=== PATIENT | male | born 1970 | race Asian ===

== ENCOUNTER 2017-10-24 01:26 | Emergency (ER) | payer OTHER ==
[~2017-10-24] VITALS: Ht 170.2 cm; Wt 65.8 kg
[~2017-10-24 01:26] MED LIST: AMOXICILLIN500 MG ORAL; BACITRACIN15 GM TOPIC; CYCLOBENZAPRINE10 MG ORAL; IBUPROFEN600 MG ORAL; NKM; NORCO 5-325 TA1 EACH ORAL; VALACYCLOVIR1000 MG ORAL; VALIUM5 MG PO; ZITHROMAX250 MG ORAL
--- NOTE | 2017-10-24 01:49 | Emergency Room Report ---
History of Present Illness General Chief Complaint: Palpitations Source: Patient, Medical Record Present Illness HPI 47-year-old male, history of alcohol abuse, presenting with chest pressure. Patient states that he has been drinking a lot, states that his mother just of pancreatic cancer 2 days ago, states that he isn't drinking a lot more than usual. Just a little chest pressure. States that he feels like he had a " heart attack a few weeks ag". States that he did not go to the hospital or do anything about it. Denies using any other illegal drugs Allergies: Coded Allergies: No Known Allergies (Unverified , 11/22/12) Patient History Past Medical History: see triage record Past Surgical History: none Pertinent Family History: none Reviewed Nursing Documentation: PMH: Agreed; PSxH: Agreed Nursing Documentation-PMH Past Medical History: No History, Except For Hx Cardiac Problems: No - TB in 1990, Herpes Review of Systems All Other Systems: negative except mentioned in HPI Physical Exam Vital Signs Date Time Temp Pulse Resp B/P (MAP) Pulse Ox O2 Delivery O2 Flow Rate FiO2 10/24/17 01:32 97.9 73 16 116/83 99 Room Air 97.9 Sp02 EP Interpretation: reviewed, normal General Appearance: other - Intoxicated, anxious, but not in pain Head: normocephalic, atraumatic Eyes: bilateral eye normal inspection, bilateral eye PERRL, bilateral eye EOMI ENT: normal ENT inspection, normal pharynx, normal voice, moist mucus membranes Neck: normal inspection, full range of motion, supple Respiratory: normal inspection, lungs clear, normal breath sounds, no respiratory distress, no retraction, no wheezing, speaking full sentences, chest symmetrical Cardiovascular #1: normal inspection, regular rate, rhythm, no edema, normal capillary refill Cardiovascular #2: 2+ radial (R), 2+ radial (L) Gastrointestinal: normal inspection, non tender, soft, non-distended, no guarding Genitourinary: no CVA tenderness Musculoskeletal: normal inspection, back normal, normal range of motion, non- tender Neurologic: normal inspection, alert, oriented x3, responsive, motor strength/ tone normal, sensory intact, normal gait, speech normal Psychiatric: depressed affect, anxious, other Skin: normal inspection, normal color, no rash, warm/dry, well hydrated, normal turgor Medical Decision Making Diagnostic Impression: Primary Impression: Alcohol intoxication ER Course 47-year-old male, history of alcohol abuse, presenting with chest pain DDX: Alcohol intoxication Less likely, ACS vs. CHF vs. pneumonia vs. gastritis/GERD vs. pneumothorax No suicidal ideation Plan: IV access, obtain labs including troponin, EKG, CXR Alcohol and toxicology labs ER course: pt has been sleeping comfortably throughout the night now clinically sober DC home Disposition: Patient will be discharged to home. Strict precautions discussed with patient on when to emergently return to the ED : this includes worsening/severe chest pain, palpitations, shortness of breath, syncopal episodes, fever or chills, which may indicate severe illness. Patient verbalized understanding. Patient instructed to follow up with their PMD within the next 2 days. Patient also instructed to follow up with a generator operator straight bevel gear within 2 days for possible outpatient stress test. Patient agrees with plan. Please note that this Emergency Department Report was dictated using [employer] specialist technology software, occasionally this can lead to erroneous entry secondary to interpretation by the dictation equipment. EKG Diagnostic Results EP Interpretation: Yes Rate: normal Rhythm: NSR ST Segments: No acute changes ASA given to patient: no Rhythm Strip EP Interpretation: Yes Rate: 74 Rhythm: NSR, no PVCs, no ectopy Chest X-ray CXR: Ordered: Yes 1 view Indication: Chest pain EP interpretation: Yes Interpretation: No consolidation, no effusion, no PTX, no acute cardiopulmonary disease Impression: No acute disease Electronically signed by Trav Licona MD Laboratory Tests Test 10/24/17 01:52 10/24/17 03:14 White Blood Count 6.8 K/UL (4.8-10.8) Red Blood Count 3.82 M/UL (4.70-6.10) L Hemoglobin 13.8 G/DL (14.2-18.0) L Hematocrit 38.7 % (42.0-52.0) L Mean Corpuscular Volume 101 FL (80-99) H Mean Corpuscular Hemoglobin 36.1 PG (27.0-31.0) H Mean Corpuscular Hemoglobin Concent 35.6 G/DL (32.0-36.0) Red Cell Distribution Width 11.1 % (11.6-14.8) L Platelet Count 186 K/UL (150-450) Mean Platelet Volume 7.2 FL (6.5-10.1) Neutrophils (%) (Auto) 47.4 % (45.0-75.0) Lymphocytes (%) (Auto) 33.5 % (20.0-45.0) Monocytes (%) (Auto) 13.2 % (1.0-10.0) H Eosinophils (%) (Auto) 4.7 % (0.0-3.0) H Basophils (%) (Auto) 1.2 % (0.0-2.0) Sodium Level 141 MMOL/L (136-145) Potassium Level 3.4 MMOL/L (3.5-5.1) L Chloride Level 106 MMOL/L (98-107) Carbon Dioxide Level 27 MMOL/L (21-32) Anion Gap 8 mmol/L (5-15) Blood Urea Nitrogen 18 mg/dL (7-18) Creatinine 0.9 MG/DL (0.55-1.30) Estimate Glomerular Filtration Rate > 60 mL/min (>60) Glucose Level 89 MG/DL (74-106) Calcium Level 8.7 MG/DL (8.5-10.1) Total Bilirubin 0.4 MG/DL (0.2-1.0) Aspartate Amino Transferase (AST) 63 U/L (15-37) H Alanine Aminotransferase (ALT) 47 U/L (12-78) Alkaline Phosphatase 51 U/L (46-116) Troponin I 0.000 ng/mL (0.000-0.056) Total Protein 6.7 G/DL (6.4-8.2) Albumin 3.5 G/DL (3.4-5.0) Globulin 3.2 g/dL Albumin/Globulin Ratio 1.1 (1.0-2.7) Serum Alcohol 283 mg/dL Urine Color Pale yellow Urine Appearance Clear Urine pH 6 (4.5-8.0) Urine Specific [place] 1.010 (1.005-1.035) Urine Protein Negative (NEGATIVE) Urine Glucose (UA) Negative (NEGATIVE) Urine Ketones Negative (NEGATIVE) Urine Occult Blood Negative (NEGATIVE) Urine Nitrite Negative (NEGATIVE) Urine Bilirubin Negative (NEGATIVE) Urine Urobilinogen Normal MG/DL (0.0-1.0) Urine Leukocyte Esterase Negative (NEGATIVE) Urine Opiates Screen Negative (NEGATIVE) Urine Barbiturates Screen Negative (NEGATIVE) Phencyclidine (PCP) Screen Negative (NEGATIVE) Urine Amphetamines Screen Negative (NEGATIVE) Urine Benzodiazepines Screen Negative (NEGATIVE) Urine Cocaine Screen Negative (NEGATIVE) Urine Marijuana (THC) Screen Negative (NEGATIVE) Last Vital Signs Date Time Temp Pulse Resp B/P (MAP) Pulse Ox O2 Delivery O2 Flow Rate FiO2 10/24/17 01:32 97.9 73 16 116/83 99 Room Air 97.9 Disposition: HOME, SELF-CARE Condition: Improved Referrals: [facility] (PCP) Trav Licona M.D. Oct 24, 2017 01:49
[2017-10-24 01:54] VITALS: BP 115/89
[2017-10-24 02:13] LABS: BASOPHILS % (AUTO) 1.2 % (0.0-2.0); EOSINOPHILS % (AUTO) 4.7 % (0.0-3.0); HEMATOCRIT 38.7 % (42.0-52.0); HEMOGLOBIN 13.8 G/DL (14.2-18.0); LYMPHOCYTES % (AUTO) 33.5 % (20.0-45.0); MEAN CORPUSCULAR VOLUME 101 FL (80-99); MONOCYTES % (AUTO) 13.2 % (1.0-10.0); NEUTROPHILS % (AUTO) 47.4 % (45.0-75.0); PLATELET COUNT 186 K/UL (150-450); RED BLOOD COUNT 3.82 M/UL (4.70-6.10); RED CELL DISTRIBUTION WIDTH 11.1 % (11.6-14.8); WHITE BLOOD COUNT 6.8 K/UL (4.8-10.8)
[2017-10-24 02:31] LABS: ANION GAP 8 mmol/L (5-15); BLOOD UREA NITROGEN 18 mg/dL (7-18); CALCIUM 8.7 MG/DL (8.5-10.1); CARBON DIOXIDE 27 MMOL/L (21-32); CHLORIDE 106 MMOL/L (98-107); CREATININE 0.9 MG/DL (0.55-1.30); POTASSIUM 3.4 MMOL/L (3.5-5.1); SODIUM 141 MMOL/L (136-145)
[2017-10-24 02:35] LABS: ALANINE AMINOTRANSFERASE 47 U/L (12-78); ALBUMIN 3.5 G/DL (3.4-5.0); ALBUMIN/GLOBULIN RATIO 1.1 (1.0-2.7); ALKALINE PHOSPHATASE 51 U/L (46-116); ASPARTATE AMINO TRANSFERASE 63 U/L (15-37); BILIRUBIN,TOTAL 0.4 MG/DL (0.2-1.0)
[2017-10-24 03:27] LABS: APPEARANCE,URINE CLEAR; BILIRUBIN, URINE NEGATIVE (NEGATIVE); COLOR,URINE PALE YELLOW; GLUCOSE, URINE (UA) NEGATIVE (NEGATIVE); KETONES,URINE NEGATIVE (NEGATIVE); LEUKOCYTE ESTERASE ,URINE NEGATIVE (NEGATIVE); NITRITE,URINE NEGATIVE (NEGATIVE); PH,URINE 6 (4.5-8.0); PROTEIN,URINE NEGATIVE (NEGATIVE); UROBILINOGEN,URINE NORMAL MG/DL (0.0-1.0)
[2017-10-24 03:40] VITALS: BP 105/75
[2017-10-24 06:23] VITALS: BP 101/70
[2017-10-24 08:38] VITALS: BP 98/77
--- NOTE | 2017-10-24 09:20 | Diagnostic Imaging Report ---
Indication: Chest pain Technique: One view of the chest Comparison: none Findings: Lungs and pleural spaces are clear. Heart size is normal Impression: No acute process
--- NOTE | 2017-10-24 21:40 | Cardiology Report ---
APPROVED REPORT EKG Measurement Heart [id number] Normal sinus rhythm Normal ECG
== END 2017-10-24 08:39 | disposition home or self-care (01) ==
LOC: EMR 01:43
DX: R07.9 Chest pain, unspecified (principal); F10.129 Alcohol abuse with intoxication, unspecified; Y90.8 Blood alcohol level of 240 mg/100 ml or more
CPT/HCPCS: 36415; 71045; 80053; 80307; 80329; 81003; 84484; 85025; 93005; 96374; 99284

== ENCOUNTER 2018-02-20 22:08 | Emergency (ER) | payer OTHER ==
[~2018-02-20] VITALS: Ht 170.2 cm; Wt 66.2 kg
[2018-02-20 22:30] VITALS: BP 122/77
--- NOTE | 2018-02-20 22:38 | Emergency Room Report ---
History of Present Illness General Chief Complaint: Abdominal Pain Source: Patient Present Illness HPI Patient with diarrhea for 2 days. Brown, multiple BMs during the day making it hard for him to work. No fevers or chills. Denies vomiting or nausea. Some abdominal cramping but denies pain at this time. Took immodium and pepto without help. No dysuria. No blood in stool. Feels slightly week due to amount of diarrhea and decrease in eating. No recent travel, unusual foods. He states this happened to him before and a stool swab indicated he had an infection. It was treated with Cipro with improvement. He wants this at this time. H/O alcohol abuse in past. No fam h/o inflammatory bowel disease. Allergies: Coded Allergies: No Known Allergies (Unverified , 11/22/12) Patient History Past Medical History: see triage record Pertinent Family History: other - pancreatic cancer Social History: Reports: smoking; Denies: alcohol use, drug use Social History Narrative working Reviewed Nursing Documentation: PMH: Agreed; PSxH: Agreed Nursing Documentation-PMH Hx Cardiac Problems: No - TB in 1990, Herpes Review of Systems All Other Systems: negative except mentioned in HPI Physical Exam Vital Signs Date Time Temp Pulse Resp B/P (MAP) Pulse Ox O2 Delivery O2 Flow Rate FiO2 02/20/18 22:20 98.3 90 18 127/70 98 Room Air 98.2 Sp02 EP Interpretation: reviewed, normal General Appearance: well appearing, no apparent distress, GCS 15 Head: normocephalic, atraumatic Eyes: bilateral eye normal inspection, bilateral eye PERRL ENT: hearing grossly normal, normal voice, moist mucus membranes Neck: full range of motion, supple Respiratory: lungs clear, no respiratory distress, speaking full sentences Cardiovascular #1: regular rate, rhythm Cardiovascular #2: 2+ radial (L) Gastrointestinal: normal bowel sounds, non tender, soft, scaphoid Musculoskeletal: digits/nails normal, gait/station normal, normal range of motion Neurologic: alert, normal gait, grossly normal Psychiatric: mood/affect normal Skin: no rash Medical Decision Making Diagnostic Impression: Primary Impression: Diarrhea Qualified Codes: R19.7 - Diarrhea, unspecified ER Course Patient presents with diarrhea. DDx: GItis, infectious - viral vs bacterial, inflammatory bowel disease, food poisoning amongst others. Patient not toxic. He is insisting on treatment with Ciprofloxin. I discussed need for further evaluation but he only wants antibiotics. He agreed that if he is not better he would return. Patient stable for outpatient observation and treatment. Last Vital Signs Date Time Temp Pulse Resp B/P (MAP) Pulse Ox O2 Delivery O2 Flow Rate FiO2 02/20/18 23:02 98.2 77 18 122/77 98 Room Air 98.2 Status: improved Disposition: HOME, SELF-CARE Condition: Improved Scripts Diphenoxylate Hcl/Atropine (LOMOTIL TABLET) 1 Each Tablet 1 TAB ORAL BID, #4 TAB 0 Refills Prov: Inocente Dupree M.D. 02/20/18 Ciprofloxacin Hcl* (CIPROFLOXACIN HCL*) 500 Mg Tablet 500 MG ORAL Q12H, #10 TAB 0 Refills Prov: Inocente Dupree M.D. 02/20/18 Inocente Dupree M.D. Feb 20, 2018 22:38
[2018-02-20] MEDS ORDERED: LOMOTIL TABLET1 EACH ORAL (22:40)
[2018-02-20] MEDS ORDERED: CIPROFLOXACIN500 M2 ORAL (22:40)
[2018-02-20] MEDS ORDERED: Ciprofloxacin 500mg tab ORAL ONE (22:45)
[2018-02-20 23:02] VITALS: BP 122/77
== END 2018-02-20 23:02 | disposition home or self-care (01) ==
LOC: EMR 22:42
DX: R19.7 Diarrhea, unspecified (principal)
CPT/HCPCS: 99283

== ENCOUNTER 2018-04-16 22:59 | Emergency (ER) | payer OTHER ==
[~2018-04-16] VITALS: Ht 167.6 cm; Wt 67.1 kg
[~2018-04-16 22:59] MED LIST changes: +CIPROFLOXACIN500 M2 ORAL; +LOMOTIL TABLET1 EACH ORAL
[2018-04-16 23:07] VITALS: BP 113/59
--- NOTE | 2018-04-16 23:22 | Emergency Room Report ---
History of Present Illness General Chief Complaint: Gastrointestinal Illness Source: Patient Present Illness HPI Patient presents with complaints of multiple episodes of loose stools at times they have been more bulky however patient had several more episodes of brown watery diarrhea Denies any pain Denies any vomiting Denies any chest pain or shortness of breath He felt that there was some green discoloration previously which has resolved Denies any blood in the stool Denies any recent travel Denies any recent antibiotics Allergies: Coded Allergies: No Known Allergies (Unverified , 11/22/12) Patient History Past Medical History: see triage record Pertinent Family History: none Reviewed Nursing Documentation: PMH: Agreed; PSxH: Agreed Nursing Documentation-PMH Past Medical History: No History, Except For Hx Cardiac Problems: No - TB in 1990, Herpes Review of Systems All Other Systems: negative except mentioned in HPI Physical Exam Vital Signs Date Time Temp Pulse Resp B/P (MAP) Pulse Ox O2 Delivery O2 Flow Rate FiO2 04/16/18 23:03 98.8 115 16 106/79 94 Room Air 98.8 Sp02 EP Interpretation: reviewed, normal General Appearance: well appearing, no apparent distress Head: normocephalic, atraumatic Eyes: bilateral eye PERRL, bilateral eye EOMI ENT: hearing grossly normal, normal pharynx, TMs + canals normal, uvula midline Neck: full range of motion, supple, no meningismus, no bony tend Respiratory: lungs clear, normal breath sounds, no rhonchi, no respiratory distress, no retraction, no accessory muscle use Cardiovascular #1: normal peripheral pulses, regular rate, rhythm, no edema, no gallop, no JVD, no murmur Gastrointestinal: normal bowel sounds, non tender, soft, no mass, no organomegaly, non-distended, no guarding, no hernia, no pulsatile mass, no rebound Genitourinary: no CVA tenderness Musculoskeletal: normal inspection Neurologic: oriented x3, responsive, home health nurse III-XII nml as tested, motor strength/ tone normal, sensory intact Psychiatric: mood/affect normal Skin: normal color, no rash, warm/dry, palpation normal Lymphatic: normal inspection, no adenopathy Medical Decision Making Diagnostic Impression: Primary Impression: Diarrhea ER Course With the history exam and presentation, multiple differentials considered, including but not limited to appendicitis, gastritis, cholecystitis, diverticulitis Patient however does not have any abdominal pain Essentially having concern regarding the watery stool Baseline blood work is appropriate Patient is a candidate for close GI outpatient follow-up with possible colonoscopy Patient asking multiple different consideration such as cancer, pancreatitis other pathology And at this time was recommended that the outpatient follow-up would be most appropriate Patient was also placed on low antibiotics for consideration of bacterial enteritis Labs Test 04/16/18 23:20 White Blood Count 5.9 K/UL (4.8-10.8) Red Blood Count 4.35 M/UL (4.70-6.10) Hemoglobin 15.6 G/DL (14.2-18.0) Hematocrit 43.3 % (42.0-52.0) Mean Corpuscular Volume 100 FL (80-99) Mean Corpuscular Hemoglobin 35.9 PG (27.0-31.0) Mean Corpuscular Hemoglobin Concent 36.1 G/DL (32.0-36.0) Red Cell Distribution Width 10.6 % (11.6-14.8) Platelet Count 272 K/UL (150-450) Mean Platelet Volume 5.6 FL (6.5-10.1) Neutrophils (%) (Auto) 58.0 % (45.0-75.0) Lymphocytes (%) (Auto) 25.8 % (20.0-45.0) Monocytes (%) (Auto) 7.5 % (1.0-10.0) Eosinophils (%) (Auto) 6.8 % (0.0-3.0) Basophils (%) (Auto) 1.8 % (0.0-2.0) Sodium Level 144 MMOL/L (136-145) Potassium Level 3.8 MMOL/L (3.5-5.1) Chloride Level 108 MMOL/L (98-107) Carbon Dioxide Level 25 MMOL/L (21-32) Anion Gap 12 mmol/L (5-15) Blood Urea Nitrogen 12 mg/dL (7-18) Creatinine 0.9 MG/DL (0.55-1.30) Estimat Glomerular Filtration Rate > 60 mL/min (>60) Glucose Level 97 MG/DL (74-106) Calcium Level 8.5 MG/DL (8.5-10.1) Total Bilirubin 1.4 MG/DL (0.2-1.0) Direct Bilirubin 0.2 MG/DL (0.0-0.3) Aspartate Amino Transf (AST/SGOT) 33 U/L (15-37) Alanine Aminotransferase (ALT/SGPT) 37 U/L (12-78) Alkaline Phosphatase 63 U/L (46-116) Total Protein 7.1 G/DL (6.4-8.2) Albumin 3.6 G/DL (3.4-5.0) Globulin 3.5 g/dL Albumin/Globulin Ratio 1.0 (1.0-2.7) Lipase 227 U/L (73-393) Serum Alcohol 154 mg/dL Last Vital Signs Date Time Temp Pulse Resp B/P (MAP) Pulse Ox O2 Delivery O2 Flow Rate FiO2 04/16/18 23:03 98.8 115 16 106/79 94 Room Air 98.8 Status: improved Disposition: HOME, SELF-CARE Condition: Improved Scripts Ciprofloxacin Hcl* (CIPROFLOXACIN HCL*) 500 Mg Tablet 500 MG ORAL Q12H, #10 TAB 0 Refills Prov: Joshua Blackman DO 04/17/18 Referrals: [facility] (PCP) Additional Instructions: Patient is provided with the discharge instructions notified to follow up with primary doctor in the next 2-3 days otherwise return to the er with any worsening symptoms. Please note that this report is being documented using [employer] technology. This can lead to erroneous entry secondary to incorrect interpretation by the dictating instrument. Joshua Blackman DO Apr 16, 2018 23:22
[2018-04-16 23:42] LABS: BASOPHILS % (AUTO) 1.8 % (0.0-2.0); EOSINOPHILS % (AUTO) 6.8 % (0.0-3.0); HEMATOCRIT 43.3 % (42.0-52.0); HEMOGLOBIN 15.6 G/DL (14.2-18.0); LYMPHOCYTES % (AUTO) 25.8 % (20.0-45.0); MEAN CORPUSCULAR VOLUME 100 FL (80-99); MONOCYTES % (AUTO) 7.5 % (1.0-10.0); PLATELET COUNT 272 K/UL (150-450); RED BLOOD COUNT 4.35 M/UL (4.70-6.10); RED CELL DISTRIBUTION WIDTH 10.6 % (11.6-14.8); WHITE BLOOD COUNT 5.9 K/UL (4.8-10.8)
[2018-04-16 23:51] LABS: ANION GAP 12 mmol/L (5-15); BLOOD UREA NITROGEN 12 mg/dL (7-18); CALCIUM 8.5 MG/DL (8.5-10.1); CARBON DIOXIDE 25 MMOL/L (21-32); CHLORIDE 108 MMOL/L (98-107); CREATININE 0.9 MG/DL (0.55-1.30); POTASSIUM 3.8 MMOL/L (3.5-5.1); SODIUM 144 MMOL/L (136-145)
[2018-04-17 00:01] LABS: ALANINE AMINOTRANSFERASE 37 U/L (12-78); ALBUMIN 3.6 G/DL (3.4-5.0); ALKALINE PHOSPHATASE 63 U/L (46-116); ASPARTATE AMINO TRANSFERASE 33 U/L (15-37); BILIRUBIN,TOTAL 1.4 MG/DL (0.2-1.0)
[2018-04-17 00:04] LABS: BILIRUBIN,DIRECT 0.2 MG/DL (0.0-0.3)
[2018-04-17] MEDS ORDERED: CIPROFLOXACIN500 M2 ORAL (00:48)
[2018-04-17 01:08] VITALS: BP 113/59
== END 2018-04-17 01:12 | disposition home or self-care (01) ==
LOC: EMR 23:19
DX: R19.7 Diarrhea, unspecified (principal)
CPT/HCPCS: 36415; 80053; 80329; 82248; 83690; 85025; 96360; 99284

== ENCOUNTER 2020-08-28 23:09 | Emergency (ER) | payer OTHER ==
[~2020-08-28] VITALS: Ht 170.2 cm; Wt 65.8 kg
--- NOTE | 2020-08-28 23:25 | Emergency Room Report ---
History of Present Illness General Chief Complaint: Alcohol Intoxication Source: Patient Present Illness HPI This is a 50-year-old male who has history of alcohol use. He presents with chief complaint of fall/collapse. He said he had recent retinal detachment surgery and just finished his therapy for it. He said he was celebrating with a couple vodka and orange juice. He said he was walking often he said he felt very weak and fell to the ground. He did not pass out. He was cognizant. He just weak and couldn't get up for several minutes. He is better now appears back to baseline. No other focal deficit. No slurred speech. Denies any fever chills but denies any nausea vomiting or diarrhea. Allergies: Coded Allergies: No Known Allergies (Unverified , 11/22/12) COVID-19 Screening Contact w/high risk pt: No Experienced COVID-19 symptoms?: No COVID-19 Testing performed SUPERVISOR SHIPPING ROOM: No Patient History Past Medical History: see triage record, old chart reviewed Past Surgical History: other Pertinent Family History: none Social History: Denies: smoking Immunizations: other Reviewed Nursing Documentation: PMH: Agreed; PSxH: Agreed Nursing Documentation-PMH Hx Cardiac Problems: No - TB in 1990, Herpes Review of Systems Eye: Denies: eye pain, blurred vision ENT: Denies: ear pain, nose congestion, throat swelling Respiratory: Denies: cough, shortness of breath Cardiovascular: Denies: chest pain, palpitations Gastrointestinal: Denies: abdominal pain, diarrhea, nausea, vomiting Musculoskeletal: Denies: back pain, joint pain Skin: Denies: rash Neurological: Denies: headache, numbness Endocrine: Denies: increased thirst, increased urine Hematologic/Lymphatic: Denies: easy bruising All Other Systems: negative except mentioned in HPI Physical Exam Vital Signs Date Time Temp Pulse Resp B/P (MAP) Pulse Ox O2 Delivery O2 Flow Rate FiO2 08/28/20 23:15 98.4 67 16 230/88 (135) 100 Room Air Vitals with high blood pressure Sp02 EP Interpretation: reviewed, normal General Appearance: well appearing, no apparent distress, alert Head: normocephalic, atraumatic Eyes: bilateral eye PERRL, bilateral eye EOMI ENT: hearing grossly normal, normal pharynx Neck: full range of motion, supple, no meningismus Respiratory: chest non-tender, lungs clear, normal breath sounds Cardiovascular #1: regular rate, rhythm, no murmur Gastrointestinal: normal bowel sounds, non tender, no mass, no organomegaly, no bruit, non-distended Musculoskeletal: back normal, normal range of motion, gait/station normal Psychiatric: mood/affect normal Medical Decision Making Diagnostic Impression: Primary Impression: Acute alcoholic intoxication Qualified Codes: F10.920 - Alcohol use, unspecified with intoxication, uncomplicated Additional Impression: Fall Qualified Codes: W19.XXXA - Unspecified fall, initial encounter ER Course This patient presents with a fall. Probably because he was very intoxicated. He claims he only had one drink to celebrate his discharge from physical therapy for retinal detachment surgery. Obviously was a large drink of vodka. He has been talking nonstop on the phone with his friend. Initially he refused a CT scan but now agreed to get a CT scan. I see no focal deficit to indicate TIA or CVA. There is no evidence of any bleed. CT/MRI/US Diagnostic Results CT/MRI/US Diagnostic Results : Imaging Test Ordered: CT head Impression Read by radiologist. Negative. Last Vital Signs Date Time Temp Pulse Resp B/P (MAP) Pulse Ox O2 Delivery O2 Flow Rate FiO2 08/28/20 23:15 98.4 67 16 230/88 (135) 100 Room Air Status: improved Disposition: HOME, SELF-CARE Condition: Stable Referrals: [facility] (PCP) Patient Instructions: Alcohol Intoxication, [id number] Additional Instructions: Abstain from drinking to excess. Follow-up with your doctor in 7 days. Return if worse. Mark Sanford MD Aug 28, 2020 23:25
--- NOTE | 2020-08-28 23:30 | NUR ---
ED Nurse Note: Patient was BIBA, patient reports that he was standing, his legs gave out and fell. Denies pain or discomfort.
[2020-08-28 23:58] LABS: APPEARANCE,URINE CLEAR; BILIRUBIN, URINE NEGATIVE (NEGATIVE); COLOR,URINE PALE YELLOW; GLUCOSE, URINE (UA) NEGATIVE (NEGATIVE); KETONES,URINE NEGATIVE (NEGATIVE); LEUKOCYTE ESTERASE ,URINE NEGATIVE (NEGATIVE); NITRITE,URINE NEGATIVE (NEGATIVE); PH,URINE 7 (4.5-8.0); PROTEIN,URINE NEGATIVE (NEGATIVE); UROBILINOGEN,URINE NORMAL MG/DL (0.0-1.0)
[2020-08-29 00:23] LABS: EOSINOPHILS % (AUTO) 6.2 % (0.0-3.0); HEMATOCRIT 44.9 % (42.0-52.0); HEMOGLOBIN 15.1 G/DL (14.2-18.0); LYMPHOCYTES % (AUTO) 34.4 % (20.0-45.0); MEAN CORPUSCULAR VOLUME 103 FL (80-99); MONOCYTES % (AUTO) 6.9 % (1.0-10.0); NEUTROPHILS % (AUTO) 51.5 % (45.0-75.0); PLATELET COUNT 241 K/UL (150-450); RED BLOOD COUNT 4.37 M/UL (4.70-6.10); RED CELL DISTRIBUTION WIDTH 12.3 % (11.6-14.8); WHITE BLOOD COUNT 6.6 K/UL (4.8-10.8)
[2020-08-29 00:39] LABS: ANION GAP 9 mmol/L (5-15); BLOOD UREA NITROGEN 13 mg/dL (7-18); CARBON DIOXIDE 30 MMOL/L (21-32); CHLORIDE 109 MMOL/L (98-107); POTASSIUM 3.7 MMOL/L (3.5-5.1); SODIUM 147 MMOL/L (136-145)
[2020-08-29 00:50] LABS: ALANINE AMINOTRANSFERASE 44 U/L (12-78); ALBUMIN 3.9 G/DL (3.4-5.0); ALKALINE PHOSPHATASE 59 U/L (46-116); ASPARTATE AMINO TRANSFERASE 30 U/L (15-37); BILIRUBIN,TOTAL 1.3 MG/DL (0.2-1.0)
[2020-08-29 00:55] LABS: BILIRUBIN,DIRECT 0.3 MG/DL (0.0-0.3)
--- NOTE | 2020-08-29 01:59 | Diagnostic Imaging Report ---
EXAM: CT Head Without Intravenous Contrast CLINICAL HISTORY: AMS TECHNIQUE: Axial computed tomography images of the head/brain without intravenous contrast. CTDI is 53.4 mGy and DLP is 1125.7 mGy-cm. One or more of the following dose reduction techniques were used: automated exposure control, adjustment of the mA and/or kV according to patient size, use of iterative reconstruction technique. COMPARISON: No relevant prior studies available. FINDINGS: Brain: No hemorrhage or mass effect. Ventricles: No hydrocephalus. Bones/joints: Unremarkable. Soft tissues: Chronic changes to the right eye. Sinuses: Unremarkable. Mastoid air cells: Clear. IMPRESSION: No acute hemorrhage, hydrocephalus, or mass effect.
--- NOTE | 2020-08-29 02:11 | NUR ---
Note padminione in EDM - 08/29/20 at 0300 by LAURYN ER DISCHARGE NOTE: Patient is cleared to be discharged per ERMD, pt is aox4, on room air, with stable vital signs. pt was given dc instructions, pt was able to verbalize understanding, pt id band and iv site removed without complications. pt is able to ambulate with steady gait. pt took all belongings.
[2020-08-29 02:12] VITALS: BP 110/74
== END 2020-08-29 02:15 | disposition home or self-care (01) ==
LOC: EDBD 23:09 → EMR 23:20
DX: F10.920 Alcohol use, unspecified with intoxication, uncomplicated (principal); W01.0XXA Fall on same level from slipping, tripping and stumbling without subsequent striking against object, initial encounter; Y93.01 Activity, walking, marching and hiking; Y92.9 Unspecified place or not applicable; Z98.890 Other specified postprocedural states
CPT/HCPCS: 36415; 70450; 80053; 80307; 81001; 82248; 85025; G0480; Z7502; 99284